=== PATIENT | male | born 1995 | race Caucasian/White ===

== ENCOUNTER 2017-09-02 14:25 | Emergency (ER) | payer BC ==
[2017-09-02 14:41] VITALS: BP 150/70
--- NOTE | 2017-09-02 14:59 | UC ---
Shoulder Pain HPI - HPI Summary HPI Summary: Patient presents complaining of pain in his right shoulder. He reports having intermittent pain in his right shoulder since high school. He states that it began while playing Lacrosse. He denies any shoulder dislocation or specific injury. The past 2-3 weeks, he notes pain in his right shoulder has become more consistent and is especially more uncomfortable over the past 7 days. There is no associated acute injury. He notes his ability to move the shoulder around is limited. - History of Current Complaint Hx Obtained From: Patient Onset/Duration: Gradual Onset Timing: Constant Pain Intensity: 3 Aggravating Factor(s): Movement Alleviating Factor(s): Rest Associated Signs And Symptoms: Negative: Swelling, Redness, Fever, Numbness/ Tingling <Susannah Feldman - Last Filed: 09/02/17 15:34> <Tanisha Remy - Last Filed: 09/03/17 07:11> - History of Current Complaint Chief Complaint: UCUpperExtremity Stated Complaint: RIGHT SHOULDER PAIN Time Seen by Provider: 09/02/17 14:51 - Allergies/Home Medications Allergies/Adverse Reactions: Allergies Allergy/AdvReac Type Severity Reaction Status Date / Time amoxicillin [From Augmentin] Allergy Rash Verified 09/02/17 14:42 clavulanic acid Allergy Rash Verified 09/02/17 14:42 [From Augmentin] Home Medications: Home Medications Amphetamine MIXED SALTS TAB* [Adderall TAB*] 5 mg PO TID 09/02/17 [History Confirmed 09/02/17] PMH/Surg Hx/FS Hx/Imm Hx Previously Healthy: Yes - Surgical History Surgical History: None - Family History Known Family History: Positive: None - Social History Occupation: Employed Full-time Alcohol Use: Weekly Substance Use Type: None Smoking Status (MU): Never Smoked Tobacco - Immunization History Vaccination Up to Date: Yes <Susannah Feldman - Last Filed: 09/02/17 15:34> Review of Systems Constitutional: Negative Skin: Negative Eyes: Negative ENT: Negative Respiratory: Negative Cardiovascular: Negative Gastrointestinal: Negative Genitourinary: Negative Motor: Negative Neurovascular: Negative Musculoskeletal: Other: - R shoulder pain Neurological: Negative Psychological: Negative Is Patient Immunocompromised?: No All Other Systems Reviewed And Are Negative: Yes <Susannah Feldman - Last Filed: 09/02/17 15:34> Physical Exam Triage Information Reviewed: Yes Appearance: Well-Appearing Vital Signs: Initial Vital Signs Temp 98 F 09/02/17 14:37 Pulse 93 09/02/17 14:37 Resp 16 09/02/17 14:37 BP 150/70 09/02/17 14:37 Pulse Ox 99 09/02/17 14:37 Vital Signs Reviewed: Yes Eyes: Positive: Conjunctiva Clear ENT: Positive: Normal ENT inspection Neck: Positive: Supple, Nontender, No Lymphadenopathy Respiratory: Positive: Lungs clear, Normal breath sounds Cardiovascular: Positive: RRR, No Murmur Abdomen Description: Positive: Nontender, No Organomegaly, Soft Bowel Sounds: Positive: Present Musculoskeletal: Positive: Other: - Patient bare from the waist up: Right upper extremity exam compared to left shows some questionable mild atrophy to the right shoulder girdle. Patient has some generalized tenderness to palpation of the right shoulder girdle. Active Range of motion is limited in all directions especially abduction and external rotation. Patient has a positive drop arm test but negative anterior stressing. The right elbow, wrist and hand are nontender. Active range of motion to these areas is intact. The hand has full sensory, vascular, motor function. Neck and back are without gross deformity swelling or discoloration spine is nontender to palpation. Neurological: Positive: Alert Psychological: Positive: Age Appropriate Behavior Skin Exam: Normal <Susannah Feldman - Last Filed: 09/02/17 15:34> Vital Signs: Initial Vital Signs Temp 98 F 09/02/17 14:37 Pulse 93 09/02/17 14:37 Resp 16 09/02/17 14:37 BP 150/70 09/02/17 14:37 Pulse Ox 99 09/02/17 14:37 <Tanisha Remy - Last Filed: 09/03/17 07:11> Diagnostics - Radiology No standard instances Xray Interpretation: No Acute Changes Radiology Interpretation Completed By: Radiologist - R shoulder <Susannah Feldman - Last Filed: 09/02/17 15:34> Shoulder Course/Dx - Course Course Of Treatment: Repeat BP 108/78 manual cuff L arm by myself. No concern for fx or dislocation. Limited rom and drop arm raises concern for rotator cuff issue. sling and prescription Nsaid declined. will limit work and refer to orthopedics. - Differential Dx/Diagnosis Provider Diagnoses: R shoulder pain. Possible rotator cuff injury. <Susannah Feldman - Last Filed: 09/02/17 15:34> Discharge - Sign-Out/Discharge Documenting (check all that apply): Discharge/Admit/Transfer - Billing Disposition and Condition Condition: STABLE Disposition: Home <Susannah Feldman - Last Filed: 09/02/17 15:34> - Billing Disposition and Condition Condition: STABLE Disposition: Home <Tanisha Remy - Last Filed: 09/03/17 07:11> - Discharge Plan Condition: Stable Disposition: HOME Patient Education Materials: Rotator Cuff Injury (ED), Shoulder Pain (ED) Forms: *Work Release Referrals: Vincenzo Santos DO [Primary Care Provider] - If Needed Xander Ram MD [Medical Doctor] - As Soon As Possible Attestation Statement User Type: Provider - I was available for consult. This patient was seen by the CAMRYN. The patient was not presented to, seen by, or examined by me. -Mickey <Tanisha Remy - Last Filed: 09/03/17 07:11>
--- NOTE | 2017-09-02 15:26 | RAD ---
INDICATION: Right shoulder pain x2 weeks COMPARISON: None. TECHNIQUE: 4 views of the right shoulder were obtained. FINDINGS: The adequately corticated bones are in normal alignment. Joint spaces appear maintained. No fracture, dislocation or focal bony abnormality is seen. IMPRESSION: Normal radiograph of the right shoulder. If the patient's symptoms persist, follow-up imaging is recommended.
== END 2017-09-02 15:41 | disposition home or self-care (01) ==
LOC: UCCORT 14:25
DX: M25.511 Pain in right shoulder (principal); Z88.0 Allergy status to penicillin
CPT/HCPCS: 99201; G0463

== ENCOUNTER 2018-02-24 10:10 | Day surgery (SDC) | payer BC ==
--- NOTE | 2018-02-11 16:17 | HP ---
HISTORY AND PHYSICAL: DATE OF ADMISSION/SURGERY: 02/24/18 [facility] DATE OF OFFICE VISIT: 02/11/18 SURGEON: Gertrude Eric MD.* (DICTATED BY JEANETTE ONEILL) PROCEDURE: Right shoulder arthroscopy with posterior labral repair, debridement , decompression, possible subpectoral biceps tenodesis. CHIEF COMPLAINT: Right shoulder pain. HISTORY OF PRESENT ILLNESS: Mr. Gorman is a 22-year-old gentleman with continued complaints of right shoulder pain secondary to impingement with his posterior labral tear. He was elected to proceed with surgery. PAST MEDICAL HISTORY: Denies. PAST SURGICAL HISTORY: Right foot surgery and a tonsillectomy. CURRENT MEDICATIONS: 1. Tylenol and ibuprofen as needed. 2. Amphetamine salt 3 times a day. ALLERGIES: To AUGMENTIN. FAMILY HISTORY: Diabetes. SOCIAL HISTORY: He is a 22-year-old gentleman who lives alone. He says he occasionally smokes every few weeks a couple of cigarettes. He denies use of drugs and he does use alcohol. REVIEW OF SYSTEMS: A complete 14-point review of systems was reviewed with the patient. It is all negative or noncontributory. He denies history of DVT, PE, hepatitis, HIV, or anesthesia problems. PHYSICAL EXAMINATION GENERAL: He is well developed, well nourished, in no acute distress. VITAL SIGNS: He stands 70 inches tall, weighs 227 pounds. His blood pressure is 138/78 and his heart rate is 68. HEENT: Normocephalic, atraumatic. NECK: Supple. No palpable lymph nodes. PULMONARY: The lungs are clear to auscultation bilaterally. CARDIO: Regular rate and rhythm. Strong S1, S2. ABDOMEN: Soft, nontender, nondistended. NEUROLOGICAL: He is alert and oriented x3. MUSCULOSKELETAL: Right upper extremity, the skin is intact. There are no open wounds or abrasions. He can forward flex to 150 degrees, abduct to 150, externally rotate to about 70 degrees, and internally rotate to the thoracolumbar spine. He has a 2+ distal radial pulse and intact sensation. 1 to 2+ posterior glide. 1+ anterior glide. ASSESSMENT AND PLAN: Imtiaz is a 22-year-old gentleman with right shoulder impingement and a posterior labral tear. He has failed conservative treatment and elected to proceed with surgery. He is scheduled for a right shoulder arthroscopy with posterior labral repair and debridement, decompression, and possible subpectoral biceps tenodesis. The surgery is scheduled for 02/24/[address] Eric discussed the risks and benefits of the surgery at today's visit and all of his questions were answered. He will follow up with Dr. Eric 7 to 10 days after the surgery. JEANETTE ONEILL [id number]/[facility] #: [id number] MTDKishore
[~2018-02-24 10:10] MED LIST: Buffered Lidocaine 0.9% SYRIN* 5 ML/SYR SYRINGE INTRADERM ONE; Dexamethasone IV* 4 MG/ML 1 ML (4 MG) IV SLOW PU ONE; Dexamethasone IV* 4 MG/ML 1 ML (4 MG) ONE; Famotidine IV* 10 MG/ML 2 ML (20 mg) IV ONE; Famotidine IV* 10 MG/ML 2 ML (20 mg) ONE; Lactated Ringers 1000 ML Bag* 1,000 ML IV SCH
[2018-02-24] MEDS ORDERED: ceFAZolin 2 GM PREMIX in ORs 2 GM/50 ML BAG IVPB ONE (10:18)
[2018-02-24] MEDS ORDERED: Lidocaine 2% PF * 5 ML VIAL ONE (11:05)
[2018-02-24] MEDS ORDERED: Midazolam* 1 MG/ML 5 ML VIAL (5 MG) ONE (11:05)
[2018-02-24] MEDS ORDERED: fentaNYL* 50 MCG/ML 2 ML VIAL (100 MCG VIAL) ONE ×3 (11:05→13:17)
[2018-02-24] MEDS ORDERED: Propofol* 10 MG/ML 20 ML BTL ONE (11:05)
[2018-02-24] MEDS ORDERED: ROPIVACAINE 5 MG/ML 30 ML BTL (0.5%) ONE ×2 (11:08→11:32)
[2018-02-24] MEDS ORDERED: Ondansetron INJ* 2 MG/ML VIAL ONE (11:09)
[2018-02-24] MEDS ORDERED: Atracurium* 10 MG/ML 10 ML VIAL ONE (11:15)
[2018-02-24] MEDS ORDERED: Glycopyrrolate IV* 0.2 MG/ML 1 ML VIAL ONE (12:42)
[2018-02-24] MEDS ORDERED: fentaNYL* 50 MCG/ML 2 ML VIAL (100 MCG VIAL) IV PRN (12:56)
[2018-02-24] MEDS ORDERED: DiMENhydriNATE IV* 50 MG/ML VIAL IV PUSH PRN (12:56)
[2018-02-24] MEDS ORDERED: Naloxone* 0.4 MG/ML 1 ML VIAL IV PRN (12:56)
[2018-02-24] MEDS ORDERED: HYDROmorphone INJ1* 1 MG/ML SYRINGE IV PRN (12:56)
[2018-02-24] MEDS ORDERED: Ondansetron INJ* 2 MG/ML VIAL IV PRN (12:56)
[2018-02-24] MEDS ORDERED: oxyCODONE/Acetamin 5/325 MG* TAB PO PRN (12:56)
[2018-02-24] MEDS ORDERED: Scopolamine 1.5 mg* PATCH TRANSDERM PRN (12:56)
[2018-02-24 14:52] VITALS: BP 128/77
--- NOTE | 2018-03-09 06:01 | OP ---
CC: PCP OPERATIVE REPORT: DATE OF OPERATION: 02/24/18 DATE OF : 89 SURGEON: Dr. Gertrude Eric. PASTORAL ASSISTANT: JEANETTE Montemayor An bricklayer's assistant was needed for the entirety of the case to help with positioning, retraction, and was ut ilized throughout all portions of the case. ANESTHESIA: General interscalene block. PRE-OP DIAGNOSES: 1. Right shoulder posterior labral tear with impingement. 2. Bicipital tendinitis. POST-OP DIAGNOSES: 1. Right shoulder posterior labral tear with impingement. 2. Bicipital tendinitis. OPERATIVE PROCEDURE: Right shoulder arthroscopy with: 1. Posterior labral repair. 2. Subacromial decompression with acromioplasty. 3. Subpectoral biceps tenodesis. COMPLICATIONS: None. ESTIMATED BLOOD LOSS: Minimal. INDICATIONS: Imtiaz Gorman is a 22-year-old male who was diagnosed with posterior labral tear based on imaging and exam findings. He has failed conservative management and elected to proceed with surgic al treatment. Risks and benefits of surgery were discussed at length and included, but are not limit ed to bleeding, infection; damage to nerves, vessels, surrounding structures; wound nonhealing; persi stent pain; need for further surgery; scarring; stiffness; incomplete relief of symptoms; risks of an esthesia. DESCRIPTION OF PROCEDURE: The patient was greeted in the preoperative area by the attending surgeon. Correct extremity was marked and consent was confirmed. The patient then underwent interscalene ne rve block by the anesthesiologist, after which he was brought back to the operating suite where he wa s placed in supine position on the operating table. He underwent general anesthesia and endotracheal intubation, after which he was placed in left lateral decubitus position. All bony prominences were padded and secured with a peg board. Axillary roll was placed. The right shoulder was draped unster ile with 10 pounds of traction. The right shoulder was prepped and draped in usual sterile fashion b eginning with chlorhexidine soap, scrub, and alcohol wipe and a final prep with ChloraPrep. After appropriate surgical pause indicating side, site, procedure, and administration of antibiotics, an 11 blade was used to make a posterolateral incision. Once the portal was made, the scope was int roduced into the joint and the joint was examined. There were grade 0 to 1 changes in the glenohumer al joint. The anterior labrum was intact. There was negative drive-through sign. The posterior labr um was mostly intact, but there was a small cleft of tearing. There was not a lot of inflammation an d impingement. Intraoperatively, the MRI was pulled up to confirm that this was indeed where the tea r was. Once this was identified, decision was made to repair this with 1 anchor as this was not very remarkable. The superior labrum, however, had unstable fraying and tearing. The biceps had obvious inflammation. There was abundant synovitis. The undersurface of the rotator cuff had partial thick ness tearing. At this point, the anterior portal was made in an outside-in fashion. A shaver was us ed to debride back the superior labrum. The biceps was tenotomized for later tenodesis. The scope w as positioned more anteriorly and the attention was directed to the posterior labrum. An 8-mm cannula was placed posteriorly in the labrum. Posterior labrum was probed. There was evidence of a cleft wh ere there was tearing. This was then elevated using the elevator. The glenoid was rasped as well as the capsule and soft tissues rasped. At this point, an anchor with 2.9 Bioraptor was placed in the areas of the defect. Care was taken to not overtime the posterior capsule tissues. We then encounte red anterior instability. Therefore, the sutures were passed in a simple fashion and then tied down using arthroscopic knot tying technique. This was to restore where the labrum appeared to have disco ntinuity posteriorly where the labrum had torn. Once this was complete, the undersurface of the rota tor cuff was then tagged using an 0 Prolene suture for identification proximally. The attention was directed to the subacromial space. The subacromial space was visualized. The scope was positioned in subacromial space. The portal was made in an outside-in fashion. Shaver was used to debride back the abundant bursa that was present. The undersurface of the acromion was skeletonized using electrocautery device. A 4-0 oval bur was then used to do an acromioplasty. Once this was completed, attention was directed to the cuff. The cuff was carefully probed and found to be intact. At this point, this was considered low to medium g rade partial thickness tear on the articular side. Final images were obtained. The wounds were copi ously irrigated with sterile saline. Attention was directed to the biceps. The head of bed was airplaned to the right side. The anterior portion of the shoulder was prepped ag ain using ChloraPrep. A 15 blade was used to make an incision in line with the biceps tendon. The s oft tissues were carefully dissected to expose the pec fascia. Remainder of the dissection was done bluntly. The pec was elevated and the biceps groove palpated and then brought through the wound. Onc e the biceps was brought through the wound, it was found to have synovitis and tendinopathy. The santosh ove was then prepared in usual fashion using electrocautery device, the red ball rasp, and osteotome. The Q-Fix guide was then placed in the center of the groove and drilled unicortically. The Q-Fix w as deployed with excellent purchase. The sutures were then passed through the tendon, the sutures sh uttled through the biceps in a Zuhair-Willie type configuration approximately 1 cm proximal to the musc ulotendinous junction. The stump was excised and the biceps was shuttled back to the wound and secur ed. The wounds were then copiously irrigated with sterile saline. The anterior wound was closed in layers with 2-0 Vicryl and 3-0 Monocryl. The portals were closed with 3-0 nylon. Sterile dressings were applied as well as a CryoCuff and UltraSling. He was awoken from anesthesia and transferred to the PACU in stable condition. POSTOPERATIVE PLAN: He will be nonweightbearing. He will be in a sling about 4 to 5 weeks. He will be discharged on pain medications and antibiotics. DVT prophylaxis was considered, but deferred due to no previous personal or family history. I will see the patient back in 10 to 14 days. [id number]/[facility] #: [id number]
== END 2018-02-24 14:52 | disposition home or self-care (01) ==
LOC: OREAST 10:10
PROVIDERS: ATTEND Orthopaedic Surgery
DX: S43.491A Other sprain of right shoulder joint, initial encounter (principal); M75.21 Bicipital tendinitis, right shoulder; Z72.0 Tobacco use; F90.9 Attention-deficit hyperactivity disorder, unspecified type; X58.XXXA Exposure to other specified factors, initial encounter; Y92.9 Unspecified place or not applicable; G89.18 Other acute postprocedural pain
CPT/HCPCS: C1776; J0690; J1100; J2250; J2405; J2704; J2795; J3010